=== PATIENT | male | born 1965 | race Caucasian/White ===

== ENCOUNTER 2018-11-29 19:59 | Emergency (ER) | payer OTHER ==
[~2018-11-29] VITALS: Ht 172.7 cm; Wt 104.3 kg
[2018-11-29] MEDS ORDERED: PREG100 PO (20:19)
[2018-11-29] MEDS ORDERED: DIVA125EC (20:42)
[2018-11-29] MEDS ORDERED: Percocet 5-3251 EACH PO (22:04)
[2018-11-29] MEDS ORDERED: Robaxin-750750 MG PO (22:04)
[2018-11-29] MEDS ORDERED: IBUP800 PO (22:04)
== END 2018-11-29 22:34 | disposition home or self-care (01) ==
LOC: ER 19:59
DX: M54.16 Radiculopathy, lumbar region (principal); G89.29 Other chronic pain; Z79.899 Other long term (current) drug therapy
CPT/HCPCS: 72100; 96374; 96375; 99283-25; J1170; J1885